=== PATIENT | female | born 1955 | race Hispanic/Latino ===

== ENCOUNTER 2019-08-16 07:59 | Day surgery (SDC) | payer OTHER ==
[~2019-08-16] VITALS: Ht 167.6 cm; Wt 84.8 kg
[~2019-08-16 07:59] MED LIST: ALEN70TA10 PO; ATOR40TA71 PO; CALC-1009 PO; LISI-613 PO; NAPR-1192 PO; SODIUM CHLORIDE 0.9% 1000ML 1,000 ML IV ONE
[2019-08-16 09:04] VITALS: BP 128/70
[2019-08-16] MEDS ORDERED: PROPOFOL 10 MG/ML 20ML VIAL IV ONE (10:26)
[2019-08-16 11:00] VITALS: BP 103/51
[2019-08-16 11:05] VITALS: BP 96/59
[2019-08-16 11:10] VITALS: BP 112/56
[2019-08-16 11:15] VITALS: BP 133/80
== END 2019-08-16 11:24 | disposition home or self-care (01) ==
LOC: DAH 07:59 → ENDO 07:59
PROVIDERS: ATTEND Internal Medicine Gastroenterology
DX: K59.01 Slow transit constipation (principal); K57.30 Diverticulosis of large intestine without perforation or abscess without bleeding; D17.5 Benign lipomatous neoplasm of intra-abdominal organs; K29.70 Gastritis, unspecified, without bleeding; K22.8 Other specified diseases of esophagus; Z86.010 Personal history of colon polyps; R12 Heartburn; I10 Essential (primary) hypertension; E78.5 Hyperlipidemia, unspecified; E66.9 Obesity, unspecified; M19.90 Unspecified osteoarthritis, unspecified site; E11.9 Type 2 diabetes mellitus without complications
CPT/HCPCS: 43239; 45380; 82948 ×2; A4215; A4221; A4222; A4223; A4606; A4615; A4663; J2704; J7030